=== PATIENT | female | born 1945 | race Caucasian/White ===

== ENCOUNTER 2016-09-29 14:18 | Observation (INO) | payer MEDICARE, MEDICAID ==
[2016-09-29 14:19] VITALS: BMI 57.4
--- NOTE | 2016-09-29 15:03 | C.PDOC ---
History Of Present Illness Patient is a 71 y/o female that presents to the emergency department for evaluation of left shoulder pain radiating to the chest, and left arm for the last 2 months. States her pain is getting progressively worse. Pt also reports numbness to left arm. Pt reports being seen by PMD who prescribed Motrin, notes taking Motrin with no relief. Otherwise, denies any trauma, injury, weakness, headache, dizziness, shortness of breath, palpitations, fever, chills, or any other associated symptoms at this time. Time Seen by Provider: 09/29/16 14:38 Chief Complaint (Nursing): Upper Extremity Problem/Injury History Per: Patient History/Exam Limitations: no limitations Onset/Duration Of Symptoms: Days (2 months) Current Symptoms Are (Timing): Still Present Quality: "Pain" Exacerbating Factor(s): Nothing Recent travel outside of the [place]: No Additional History Per: Patient Past Medical History Reviewed: Historical Data, Nursing Documentation, Vital Signs Vital Signs: Last Vital Signs Temp 98.1 F 10/01/16 15:00 Pulse 67 10/01/16 15:00 Resp 18 10/01/16 15:00 BP 130/70 10/01/16 17:49 Pulse Ox 96 10/01/16 15:00 - Medical History PMH: Anxiety, Asthma, CAD, CHF, COPD, HTN, Hyperlipidemia, Chronic Kidney Disease Denies: Emphysema, Kidney Stones - [facility] Procedures NEBULIZER THERAPY (11/21/13) NON-INVASIVE MECHANICAL VENTILATION (11/12/13) OCCUPATIONAL THERAPY (11/21/13) PHYSICAL THERAPY NEC (11/21/13) Family History: States: Hypertension - Social History Hx Alcohol Use: No Hx Substance Use: No Review Of Systems Except As Marked, All Systems Reviewed And Found Negative. Constitutional: Negative for: Fever, Chills Cardiovascular: Positive for: Chest Pain (left chest wall pain). Negative for: Palpitations, Edema, Light Headedness Respiratory: Negative for: Cough, Shortness of Breath, Sputum Gastrointestinal: Negative for: Nausea, Vomiting, Abdominal Pain Musculoskeletal: Positive for: Shoulder Pain (left), Arm Pain (left) Skin: Negative for: Rash Neurological: Positive for: Numbness (left arm). Negative for: Weakness, Headache, Dizziness Physical Exam - Physical Exam Appears: Non-toxic, No Acute Distress, Other (obese) Skin: Normal Color, Warm, Dry Head: Atraumatic, Normacephalic Eye(s): bilateral: Normal Inspection Neck: Normal ROM, Supple Chest: Symmetrical, Tenderness (left chest wall) Cardiovascular: Rhythm Regular, No Murmur Respiratory: Normal Breath Sounds, No Rales, No Rhonchi, No Wheezing Gastrointestinal/Abdominal: Soft, No Tenderness Extremity: No Normal ROM (decreased ROM of left shoulder secondary to pain), Tenderness (left shoulder), Capillary Refill (< 2 sec.), No Deformity, No Swelling Extremity: Bilateral: Atraumatic, Normal Color And Temperature Pulses: Left Radial: Normal, Right Radial: Normal Neurological/Psych: Oriented x3, Normal Speech, Normal Motor, Normal Sensation ED Course And Treatment - Laboratory Results Result Diagrams: 09/29/16 15:28 09/29/16 16:35 ECG: Interpreted By Me, Viewed By Me ECG Rhythm: Sinus Rhythm Rate From EC (BPM) O2 Sat by Pulse Oximetry: 98 (room air) Pulse Ox Interpretation: Normal Progress Note: Blood work, EKG, CXR, left shoulder x-ray ordered and reviewed. Patient was given Toradol. On reassessment, pain persists. Case discussed and pt evaluated by Dr Hearn, agreed upon plan and admission. Case discussed with Dr Bueno , agreed upon plan and admission. Disposition - Disposition Disposition: HOSPITALIZED Disposition Time: 15:00 Condition: STABLE - Clinical Impression Clinical Impression: Chest pain, Shoulder pain, left - PA / QA TEST LEAD / Resident Statement MD/DO has reviewed & agrees with the documentation as recorded. - Scribe Statement The provider has reviewed the documentation as recorded by the Thienibparam Bueno All medical record entries made by the Thienibparam were at my direction and personally dictated by me. I have reviewed the chart and agree that the record accurately reflects my personal performance of the history, physical exam, medical decision making, and the department course for this patient. I have also personally directed, reviewed, and agree with the discharge instructions and disposition.
[2016-09-29 15:37] LABS: BASO # 0.1 K/uL (0.0-0.2); BASO % 1.2 % (0.0-2.0); EOS # 0.3 K/uL (0.0-0.7); EOS % 2.6 % (0.0-4.0); HEMOGLOBIN 10.9 g/dL (11.0-16.0); LYMPH # 1.6 K/uL (1.0-4.3); LYMPH % 12.5 % (20.0-40.0); MEAN CORPUSCULAR HEMOGLOBIN 28.4 pg (27.0-31.0); MEAN CORPUSCULAR HGB CONC 31.6 g/dL (33.0-37.0); MEAN PLATELET VOLUME 8.5 fL (7.2-11.7); MONO # 0.8 K/uL (0.0-0.8); MONO % 6.3 % (0.0-10.0); NEUT # 9.8 K/uL (1.8-7.0); NEUT % 77.4 % (50.0-75.0); NRBC % 0.1 % (0.0-2.0); RBC 3.84 Mil/uL (3.80-5.20); WHITE BLOOD COUNT 12.6 K/uL (4.8-10.8)
--- NOTE | 2016-09-29 16:45 | RAD ---
PROCEDURE: CHEST RADIOGRAPH, 1 VIEW HISTORY: pain COMPARISON: 03/26/2012 FINDINGS: LUNGS: Clear. PLEURA: No pneumothorax or pleural fluid seen. CARDIOVASCULAR: Normal heart size. Mild congestive change. OSSEOUS STRUCTURES: No significant abnormalities. VISUALIZED UPPER ABDOMEN: Normal. OTHER FINDINGS: None. IMPRESSION: No active disease.
[2016-09-29 16:46] LABS: ALBUMIN 3.4 g/dL (3.5-5.0)
[2016-09-29 16:50] LABS: CALCIUM 8.8 mg/dl (8.6-10.4)
--- NOTE | 2016-09-29 16:54 | RAD ---
Left shoulder radiographs Indication: Pain Comparison: Chest x-ray performed the same day as well as 03/26/12 Findings: Suboptimal evaluation re- likely related to patient positioning. Unusual appearance of the scapula and scapular dislocation cannot be excluded. Suspect posterior dislocation of the humeral head, however this also may be related to suboptimal positioning. No acute displaced fracture evident. Soft tissue swelling. No evidence of radiopaque foreign body. Impression: Suboptimal evaluation re- likely related to patient positioning. Unusual appearance of the scapula and scapular dislocation cannot be excluded. Suspect posterior dislocation of the humeral head, however this also may be related to suboptimal positioning. Soft tissue swelling. Recommend clinical correlation and CT of the left shoulder for further evaluation.
[2016-09-29 17:52] LABS: CK-MB 3.01 ng/mL (0.0-3.38)
[2016-09-29] MEDS ORDERED: ATORVASTATIN CALCIUM PO SCH (22:00)
[2016-09-30 01:43] LABS: CK-MB 2.55 ng/mL (0.0-3.38)
[2016-09-30] MEDS: Levothyroxine 200 MCG TAB PO SCH (05:59)
[2016-09-30] MEDS ORDERED: Enoxaparin 40 mg Syringe SC SCH (10:00)
[2016-09-30 12:25] LABS: CK-MB 2.51 ng/mL (0.0-3.38)
--- NOTE | 2016-09-30 12:30 | CP.PCM.HP ---
Past Patient History - Infectious Disease Hx of Infectious Diseases: None - Tetanus Immunizations Tetanus Immunization: Unknown - Past Medical History & Family History Past Medical History?: Yes - Past Social History Smoking Status: Never Smoked - CARDIAC Hx Congestive Heart Failure: Yes Hx Hypercholesterolemia: Yes Hx Hypertension: Yes - PULMONARY Hx Asthma: Yes Hx Chronic Obstructive Pulmonary Disease (COPD): Yes Hx Emphysema: No - NEUROLOGICAL Hx Neurological Disorder: No - HEENT Hx HEENT Problems: No - RENAL Hx Chronic Kidney Disease: Yes Hx Kidney Stones: No - ENDOCRINE/METABOLIC Hx Endocrine Disorders: No Hx Hypothyroidism: Yes - HEMATOLOGICAL/ONCOLOGICAL Hx Blood Disorders: No - INTEGUMENTARY Hx Dermatological Problems: No - MUSCULOSKELETAL/RHEUMATOLOGICAL Hx Falls: Yes (September 16, 2016) - GASTROINTESTINAL Hx Gastrointestinal Disorders: No - GENITOURINARY/GYNECOLOGICAL Hx Genitourinary Disorders: No - PSYCHIATRIC Hx Anxiety: Yes Hx Substance Use: No - SURGICAL HISTORY Hx Arthroscopy: Yes Hx Cholecystectomy: Yes Hx Musculoskeletal Surgery: Yes (bl knee surgery) Hx Open Heart Surgery: No Other/Comment: stated has right knee surgery, eft knee surgery,brain surgery - ANESTHESIA Hx Anesthesia: Yes Hx Anesthesia Reactions: No Meds Allergies/Adverse Reactions: Allergies Allergy/AdvReac Type Severity Reaction Status Date / Time codeine Allergy Verified 09/29/16 14:40 Physical Exam - Constitutional Appears: Well - Eye Exam Eye Exam: EOMI, Normal appearance, PERRL Pupil Exam: NORMAL ACCOMODATION, PERRL - ENT Exam ENT Exam: Mucous Membranes Moist, Normal Exam - Neck Exam Neck exam: Positive for: Normal Inspection - Respiratory Exam Respiratory Exam: Decreased Breath Sounds - Cardiovascular Exam Cardiovascular Exam: REGULAR RHYTHM, +S1, +S2 - GI/Abdominal Exam GI & Abdominal Exam: Diminished Bowel Sounds, Soft - Rectal Exam Rectal Exam: Deferred Results - Vital Signs Recent Vital Signs: Last Vital Signs Temp 98.2 F 09/30/16 08:29 Pulse 76 09/30/16 08:29 Resp 18 09/30/16 08:29 BP 121/69 09/30/16 10:27 Pulse Ox 94 L 09/30/16 08:29 - Labs Result Diagrams: 09/29/16 15:28 09/29/16 16:35 Labs: Laboratory Results - last 24 hr 09/30/16 09/30/16 01:13 11:55 Total Creatine Kinase 51 48 CK-MB (Mass) 2.55 2.51 Troponin I, Quant < 0.0120 < 0.0120
--- NOTE | 2016-09-30 13:04 | CARD ---
APPROVED REPORT EKG Measurement Heart [id number] <Conclusion> Normal sinus rhythm Voltage criteria for left ventricular hypertrophy Inferior infarct, age undetermined Abnormal ECG
--- NOTE | 2016-09-30 15:11 | CT ---
CT left shoulder History: Left shoulder injury. Left shoulder pain. Suspected dislocation. Comparison: X-ray dated 09/29/2016 Technique: Multiple contiguous axial images were performed through the left shoulder without the use of intravenous contrast. Subsequently, sagittal and coronal reformatted images were obtained. This CT exam was performed using one or more of the following dose reduction techniques: Automated exposure control, adjustment of the mA and/or kV according to patient size, and/or use of iterative reconstruction technique. Findings: Study limited by patient motion step-off and streak artifact. Prominent narrowing of the left glenohumeral joint space with mild posterior subluxation of the humeral head in relationship to the bony glenoid. Associated moderate left glenohumeral joint effusion. Suggestion of some cortical irregularity of the posterior bony glenoid which may represent subchondral osseous injury. Mild flattening of the posterior lateral humeral head which may represent an impaction deformity. Correlation with MRI may be helpful if clinically indicated. Moderate degenerative changes at the left acromioclavicular joint space. Mild inferior subluxation of the distal clavicle in relationship to the acromion. Question cortical irregularity seen at the inferior pole of the scapula which may be related to prominent motion/step-off artifact versus osseous injury. Clinical correlation and or correlation with MRI may be helpful if clinically indicated. 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 No significant axillary adenopathy. Coronary calcifications. Atelectatic changes in the lung chapa. Impression: Study limited by patient motion step-off and streak artifact. 1. Prominent narrowing of the left glenohumeral joint space with mild posterior subluxation of the humeral head in relationship to the bony glenoid. Associated moderate left glenohumeral joint effusion. Suggestion of some cortical irregularity of the posterior bony glenoid which may represent subchondral osseous injury. Mild flattening of the posterior lateral humeral head which may represent an impaction deformity. Correlation with MRI may be helpful if clinically indicated. 2. Moderate degenerative changes at the left acromioclavicular joint space. Mild inferior subluxation of the distal clavicle in relationship to the acromion. 3. Question cortical irregularity seen at the inferior pole of the scapula which may be related to prominent motion/step-off artifact versus osseous injury. Clinical correlation and or correlation with MRI may be helpful if clinically indicated.
[2016-09-30] MEDS ORDERED: Fluticasone-Salmeterol 250-50mcg Diskus INH SCH (20:00)
[2016-10-01] MEDS: Albuterol-Ipratrop 3 mg / 0.5 (3 ml) UD INH PRN ×3 (00:05→14:49)
[2016-10-01 04:46] VITALS: RESP 18
[2016-10-01] MEDS: Levothyroxine 200 MCG TAB PO SCH (06:04)
--- NOTE | 2016-10-01 09:58 | CP.PCM.CON ---
History of Present Illness - History of Present Illness History of Present Illness: 71F complains of left shoulder pain x 2 months. She says the pain shoots down from her neck into her arm and into her chest. Motrin and tramadol do not control pain. She says the pain is getting worse, is worst at night, and denies any injury/trauma/falls. She also admits to tingling in her left hand and neck pain during this time. She denies fever/chills. Denies history of gout. Denies SOB/dizziness/n/v. Denies pain in other extremities. PMH: CAD, CHF, COPD, HTN, asthma, anxiety, hyperlipidemia, CKD PSH: B knee surgery, brain surgery allergy to codeine non smoker Review of Systems - Review of Systems All systems: reviewed and no additional remarkable complaints except - Constitutional Constitutional: As Per HPI - Cardiovascular Cardiovascular: As Per HPI - Respiratory Respiratory: As Per HPI - Musculoskeletal Musculoskeletal: As Per HPI - Integumentary Additional comments: denies any redness/discoloration/rash - Neurological Neurological: Tingling - Hematologic/Lymphatic Hematologic: absent: As Per HPI, Easy Bleeding, Easy Bruising, Lymphadenopathy, Other Past Patient History - Infectious Disease Hx of Infectious Diseases: None - Tetanus Immunizations Tetanus Immunization: Unknown - Past Medical History & Family History Past Medical History?: Yes Past Family History: Reviewed and not pertinent - Past Social History Smoking Status: Never Smoked - CARDIAC Hx Congestive Heart Failure: Yes Hx Hypertension: Yes - PULMONARY Hx Chronic Obstructive Pulmonary Disease (COPD): Yes - NEUROLOGICAL Hx Neurological Disorder: No - HEENT Hx HEENT Problems: No - RENAL Hx Chronic Kidney Disease: Yes Hx Kidney Stones: No - ENDOCRINE/METABOLIC Hx Endocrine Disorders: No Hx Hypothyroidism: Yes - HEMATOLOGICAL/ONCOLOGICAL Hx Blood Disorders: No - INTEGUMENTARY Hx Dermatological Problems: No - MUSCULOSKELETAL/RHEUMATOLOGICAL Hx Falls: Yes (September 16, 2016) - GASTROINTESTINAL Hx Gastrointestinal Disorders: No - GENITOURINARY/GYNECOLOGICAL Hx Genitourinary Disorders: No - PSYCHIATRIC Hx Anxiety: Yes Hx Substance Use: No - SURGICAL HISTORY Hx Arthroscopy: Yes Hx Cholecystectomy: Yes Hx Musculoskeletal Surgery: Yes (bl knee surgery) Hx Open Heart Surgery: No Other/Comment: stated has right knee surgery, eft knee surgery,brain surgery - ANESTHESIA Hx Anesthesia: Yes Hx Anesthesia Reactions: No Meds Allergies/Adverse Reactions: Allergies Allergy/AdvReac Type Severity Reaction Status Date / Time codeine Allergy Verified 09/29/16 14:40 - Medications Medications: Current Medications Albuterol/Ipratropium (Duoneb 3 Mg/0.5 Mg (3 Ml) Ud) 3 ml INH RQ4 PRN PRN Reason: Wheezing Last Admin: 10/01/16 07:41 Dose: 3 ml Alprazolam (Xanax) 1 mg PO HS [facility] Last Admin: 09/30/16 21:14 Dose: 1 mg Amlodipine Besylate (Norvasc) 10 mg PO DAILY [facility] Last Admin: 09/30/16 10:26 Dose: 10 mg Aspirin (Ecotrin) 81 mg PO DAILY [facility] Last Admin: 09/30/16 10:26 Dose: 81 mg Carvedilol (Coreg) 25 mg PO BID [facility] Last Admin: 09/30/16 17:40 Dose: 25 mg Clopidogrel Bisulfate (Plavix) 75 mg PO DAILY [facility] Last Admin: 09/30/16 10:25 Dose: 75 mg Enoxaparin Sodium (Lovenox) 30 mg SC DAILY [facility] Furosemide (Lasix) 40 mg PO DAILY [facility] Last Admin: 09/30/16 10:27 Dose: 40 mg Ibuprofen (Motrin Tab) 800 mg PO Q8 PRN PRN Reason: MODERATE PAIN 4-7 Levothyroxine Sodium (Synthroid) 200 mcg PO DAILY@0630 [facility] Last Admin: 10/01/16 06:04 Dose: 200 mcg Pneumococcal Polyvalent Vaccine (Pneumovax 23 Vaccine) 0.5 ml IM .ONCE ONE Stop: 10/02/16 10:01 Rosuvastatin Calcium (Crestor) 10 mg PO HS [facility] Last Admin: 09/30/16 21:17 Dose: 10 mg Fluticasone/Salmeterol (Advair Diskus 250/50) 1 puff INH RBID [facility] Last Admin: 09/30/16 21:20 Dose: 1 inhaler Tramadol HCl (Ultram) 50 mg PO Q12 PRN PRN Reason: SEVERE PAIN 8-10 Physical Exam - Constitutional Appears: Well, No Acute Distress - Head Exam Head Exam: ATRAUMATIC, NORMAL INSPECTION - Neck Exam Neck exam: Positive for: Full Rom, Normal Inspection Additional comments: complains of pain with any neck ROM, neg spurling - Expanded Neck Exam Expanded Expanded Neck Exam: Tenderness - Respiratory Exam Respiratory Exam: NORMAL BREATHING PATTERN - Cardiovascular Exam Additional comments: +radial pulse LUE - Expanded Upper Extremities Exam Left Shoulder exam: tenderness (generalized moderate tenderness to GH joint (worst), AC joint, scapula, upper trap, left side of neck), tenderness over AC joint, normal inspection Elbow exam: full ROM, normal inspection Neuro motor exam: finger 2-5 abduction intact, thumb abduction, thumb IP flexion intact, thumb opposition intact, wrist extension intact Neurosensory exam: median nerve intact, radial nerve intact, ulnar nerve intact (complains of tingling to volar aspect of all fingers. Dorsal hand intact, forearm sensation intact. ) Vascular exam: radial pulse - Neurological Exam Neurological exam: Alert, Oriented x3 - Psychiatric Exam Psychiatric exam: Normal Affect, Normal Mood - Skin Skin Exam: Dry, Intact, Normal Color, Warm Results - Vital Signs Recent Vital Signs: Last Vital Signs Temp 98.5 F 10/01/16 08:58 Pulse 61 10/01/16 08:58 Resp 18 10/01/16 08:58 BP 137/75 10/01/16 08:58 Pulse Ox 96 10/01/16 08:58 - Labs Result Diagrams: 09/29/16 15:28 09/29/16 16:35 Labs: Laboratory Results - last 24 hr 09/30/16 10/01/16 11:55 05:58 POC Glucose (mg/dL) 122 H Total Creatine Kinase 48 CK-MB (Mass) 2.51 Troponin I, Quant < 0.0120 Assessment & Plan (1) Degenerative joint disease, shoulder, left Assessment and Plan: CT scan reviewed MRI ordered, will attempt sling ice pain control d/w Dr. Oh Status: Acute (2) Arthralgia of left acromioclavicular joint Status: Acute (3) Neck pain on left side Assessment and Plan: xrays consider further imaging after xrays reviewed Addendum: xray limited due to body habitus. As patient is complaining of paresthesias in left hand, will order CT scan. Patient can not have MRI due to body habitus. No acute fracture appreciated or suspected, as patient has chronic pain x 2 months. Status: Acute Radiology Interpretation - Animal Feeder Animal Feeder:: Radiologist - Notes: Notes:: ccession No. : [id number] Patient Name / ID : ERNIE LOVELL / [id number] Exam Date : 10/01/2016 10:00:09 ( Approved ) Study Comment : Sex / Age : F Y Creator : Matthias Brunner MD Dictator : Matthias Brunner MD Wellness Trainer : Product Technology Scientist : Matthias Brunner MD Approver2 : Report Date : 10/01/2016 14:00:43 My Comment : PROCEDURE: Cervical Spine Radiographs. HISTORY: Pain. COMPARISON: None. FINDINGS: BONES: Due to obese body habitus and limited ability to position, study is compromised. Curvature appears straightened. No definitive fracture or spondylolisthesis is encountered. The cervical spine below the see 5 level is compromised by artifact and spondylolisthesis cannot be evaluated. Follow-up CT should be considered if clinically warranted. Dens Intact. DISC SPACES: Normal. SOFT TISSUES: Poorly evaluated. OTHER FINDINGS: None. IMPRESSION: Exam markedly limited by body habitus and limited in its ability to position however no gross fractures appreciable from C5 up to C1. Mild straightening of the curvature is questioned. Follow-up CT or MRI is recommended there is not contraindication and as clinically indicated. - Radiology Interpretation #2 Interpretation: atient Name / ID : ERNIE LOVELL / [id number] Exam Date : 09/30/2016 13:30:39 ( Approved ) Study Comment : Sex / Age : Creator : Dionte Chaudhry MD Dictator : Dionte Chaudhry MD Wellness Trainer : Product Technology Scientist : Dionte Chaudhry MD Approver2 : Report Date : 09/30/2016 15:05:53 My Comment : CT left shoulder History: Left shoulder injury. Left shoulder pain. Suspected dislocation. Comparison: X-ray dated 09/29/2016 Technique: Multiple contiguous axial images were performed through the left shoulder without the use of intravenous contrast. Subsequently, sagittal and coronal reformatted images were obtained. This CT exam was performed using one or more of the following dose reduction techniques: Automated exposure control, adjustment of the mA and/or kV according to patient size, and/or use of iterative reconstruction technique. Findings: Study limited by patient motion step-off and streak artifact. Prominent narrowing of the left glenohumeral joint space with mild posterior subluxation of the humeral head in relationship to the bony glenoid. Associated moderate left glenohumeral joint effusion. Suggestion of some cortical irregularity of the posterior bony glenoid which may represent subchondral osseous injury. Mild flattening of the posterior lateral humeral head which may represent an impaction deformity. Correlation with MRI may be helpful if clinically indicated. Moderate degenerative changes at the left acromioclavicular joint space. Mild inferior subluxation of the distal clavicle in relationship to the acromion. Question cortical irregularity seen at the inferior pole of the scapula which may be related to prominent motion/step-off artifact versus osseous injury. Clinical correlation and or correlation with MRI may be helpful if clinically indicated. 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 No significant axillary adenopathy. Coronary calcifications. Atelectatic changes in the lung chapa. Impression: Study limited by patient motion step-off and streak artifact. 1. Prominent narrowing of the left glenohumeral joint space with mild posterior subluxation of the humeral head in relationship to the bony glenoid. Associated moderate left glenohumeral joint effusion. Suggestion of some cortical irregularity of the posterior bony glenoid which may represent subchondral osseous injury. Mild flattening of the posterior lateral humeral head which may represent an impaction deformity. Correlation with MRI may be helpful if clinically indicated. 2. Moderate degenerative changes at the left acromioclavicular joint space. Mild inferior subluxation of the distal clavicle in relationship to the acromion. 3. Question cortical irregularity seen at the inferior pole of the scapula which may be related to prominent motion/step-off artifact versus osseous injury. Clinical correlation and or correlation with MRI may be helpful if clinically indicated. - Radiology Interpretation #3 Interpretation: Accession No. : [id number] Patient Name / ID : ERNIE LOVELL / [id number] Exam Date : 09/29/2016 15:24:27 ( Approved ) Study Comment : Sex / Age : F / 71Y Creator : Alexandria Gallegos MD Dictator : Alexandria Gallegos MD Wellness Trainer : Product Technology Scientist : Alexandria Gallegos MD Approver2 : Report Date : 09/29/2016 16:52:30 My Comment : Left shoulder radiographs Indication: Pain Comparison: Chest x-ray performed the same day as well as 03/26/12 Findings: Suboptimal evaluation re- likely related to patient positioning. Unusual appearance of the scapula and scapular dislocation cannot be excluded. Suspect posterior dislocation of the humeral head, however this also may be related to suboptimal positioning. No acute displaced fracture evident. Soft tissue swelling. No evidence of radiopaque foreign body. Impression: Suboptimal evaluation re- likely related to patient positioning. Unusual appearance of the scapula and scapular dislocation cannot be excluded. Suspect posterior dislocation of the humeral head, however this also may be related to suboptimal positioning. Soft tissue swelling. Recommend clinical correlation and CT of the left shoulder for further evaluation.
[2016-10-01] MEDS ORDERED: Enoxaparin 30 mg Syringe SC SCH (10:00)
[2016-10-01] MEDS ORDERED: Lidocaine 5% Patch TD SCH (10:00)
--- NOTE | 2016-10-01 12:31 | CP.PCM.PN ---
Subjective - Date & Time of Evaluation Date of Evaluation: 10/01/16 Time of Evaluation: 12:29 - Subjective Subjective: PGY2 progress note for Dr. Bueno Pt is seen and examined at bedside. No acute events overnight. Patient continues to c/o left shoulder pain and difficulty moving arm. Patient denies having any CP, abd pain, N/V/d/C. Patient c/o SOB and wheezing this morning and is in the middle of a breathing treatment. 12 point ROS are negative except for the above mentioned. Objective - Vital Signs/Intake and Output Vital Signs (last 24 hours): Temp Pulse Resp BP Pulse Ox 98.5 F 61 18 122/78 96 10/01/16 08:58 10/01/16 08:58 10/01/16 08:58 10/01/16 11:00 10/01/16 08:58 Intake and Output: 10/01/16 10/01/16 06:59 18:59 Intake Total 510 Output Total 500 Balance 10 - Medications Medications: Current Medications Albuterol/Ipratropium (Duoneb 3 Mg/0.5 Mg (3 Ml) Ud) 3 ml INH RQ4 PRN PRN Reason: Wheezing Last Admin: 10/01/16 07:41 Dose: 3 ml Alprazolam (Xanax) 1 mg PO HS [facility] Last Admin: 09/30/16 21:14 Dose: 1 mg Amlodipine Besylate (Norvasc) 10 mg PO DAILY [facility] Last Admin: 10/01/16 11:00 Dose: 10 mg Aspirin (Ecotrin) 81 mg PO DAILY [facility] Last Admin: 10/01/16 11:00 Dose: 81 mg Carvedilol (Coreg) 25 mg PO BID [facility] Last Admin: 09/30/16 17:40 Dose: 25 mg Clopidogrel Bisulfate (Plavix) 75 mg PO DAILY [facility] Last Admin: 10/01/16 11:00 Dose: 75 mg Enoxaparin Sodium (Lovenox) 30 mg SC DAILY [facility] Last Admin: 10/01/16 11:00 Dose: 30 mg Furosemide (Lasix) 40 mg PO DAILY [facility] Last Admin: 10/01/16 11:00 Dose: 40 mg Ibuprofen (Motrin Tab) 800 mg PO Q8 PRN PRN Reason: MODERATE PAIN 4-7 Levothyroxine Sodium (Synthroid) 200 mcg PO DAILY@0630 [facility] Last Admin: 10/01/16 06:04 Dose: 200 mcg Lidocaine (Lidoderm) 1 ea TD DAILY [facility] Last Admin: 10/01/16 11:00 Dose: 1 ea Pneumococcal Polyvalent Vaccine (Pneumovax 23 Vaccine) 0.5 ml IM .ONCE ONE Stop: 10/02/16 10:01 Rosuvastatin Calcium (Crestor) 10 mg PO HS [facility] Last Admin: 09/30/16 21:17 Dose: 10 mg Fluticasone/Salmeterol (Advair Diskus 250/50) 1 puff INH RBID [facility] Last Admin: 09/30/16 21:20 Dose: 1 inhaler Tramadol HCl (Ultram) 50 mg PO Q12 PRN PRN Reason: SEVERE PAIN 8-10 Last Admin: 10/01/16 11:57 Dose: 50 mg - Constitutional Appears: Non-toxic, No Acute Distress - ENT Exam ENT Exam: Mucous Membranes Moist - Respiratory Exam Respiratory Exam: Wheezes. absent: Accessory Muscle Use, Clear to Ausculation Bilateral, Rales, Rhonchi, Respiratory Distress - Cardiovascular Exam Cardiovascular Exam: REGULAR RHYTHM, +S1, +S2. absent: Gallop, Rubs, Murmur - GI/Abdominal Exam GI & Abdominal Exam: Soft, Normal Bowel Sounds. absent: Firm, Guarding, Rigid, Tenderness, Rebound - Extremities Exam Extremities Exam: absent: Pedal Edema, Tenderness Additional comments: left shoulder and upper arm pain with palpation. Patient is hesitant to move arm passive or actively - Neurological Exam Neurological Exam: Alert, Awake, Oriented x3 - Psychiatric Exam Psychiatric exam: Normal Affect, Normal Mood - Skin Skin Exam: Dry, Intact, Normal Color, Warm Assessment and Plan - Assessment and Plan (Free Text) Assessment: 71 year old female with past medical history of CAD, CHF, COPD, HTN, anxiety, HLD and CKD is admitted for left shoulder pain and left sided CP r/o ACS. CP R/O ACS - Cardiology, Dr. Cagle is consulted - Patient is to continue Crestor, Coreg, Plavix and Aspirin QD - EKG on admission showed NSR - Troponins x 3 are negative Left shoulder pain - Ortho, Dr. Bailey is consulted. Recommend outpatient followup - Shoulder x ray done on admission was a suboptimal evaluation due to positioning; unusual appearance of the scapula and scapular dislocation cannot be excluded; soft tissue swelling. - CT of upper extremity done on 7/18 showed prominent narrowing of left glenohumeral joint space with mild subluxation of the humeral head in relationship to the bony glenoid; associated moderate left glenohumeral joint effusion; moderate degenerative changes at the left acromiclavicular joint space ; mild inferior subluxation of the distal clavicle in relationship to the acromion. - Cervical spine CT shows no gross fracture - MRI cannot be done due to body habbitus HTN - Continue Lasix HLD - Crestor 10 mg po HS COPD - Advair Diskus - Duoneb Hypothyroid - Synthroid 200 mcg qd Orders and management per Dr. Bueno Patient is stable for discharge home per Dr. Bueno. Patient is to follow up with PMD upon discharge. Patient is to follow up with [facility] upon discharge. Patient is to follow up with industrial safety and health specialist within 2 weeks upon discharge. Patient is discharged with home with services for physical therapy. Patient is discharged with the following medications: Norvasc 10 mg po qd, Aspirin 81 mg po qd, Symbicort inhaler, Coreg 25 mg po qd, Plavix 75 mg po qd, Lasix 40 mg po qd, Synthroid 200 mcg po qd, Crestor 10 mg po HS. If symptoms return please go to ED.
--- NOTE | 2016-10-01 14:02 | RAD ---
PROCEDURE: Cervical Spine Radiographs. HISTORY: Pain. COMPARISON: None. FINDINGS: BONES: Due to obese body habitus and limited ability to position, study is compromised. Curvature appears straightened. No definitive fracture or spondylolisthesis is encountered. The cervical spine below the see 5 level is compromised by artifact and spondylolisthesis cannot be evaluated. Follow-up CT should be considered if clinically warranted. Dens Intact. DISC SPACES: Normal. SOFT TISSUES: Poorly evaluated. OTHER FINDINGS: None. IMPRESSION: Exam markedly limited by body habitus and limited in its ability to position however no gross fractures appreciable from C5 up to C1. Mild straightening of the curvature is questioned. Follow-up CT or MRI is recommended there is not contraindication and as clinically indicated.
--- NOTE | 2016-10-01 15:38 | CT ---
PROCEDURE: CT Cervical Spine without contrast HISTORY: <neck and left shoulder pain, paresthesias> COMPARISON: None available. TECHNIQUE: Axial computed tomography images were obtained of the cervical spine without the use of intravenous contrast. Coronal and sagittal reformatted images were created and reviewed. Radiation dose: Total exam DLP = 696 mGy-cm. This CT exam was performed using one or more of the following dose reduction techniques: Automated exposure control, adjustment of the mA and/or kV according to patient size, and/or use of iterative reconstruction technique. FINDINGS: VERTEBRAE: No fracture. Straightened curvature. No destructive bony lesion. DISCS/SPINAL CANAL/NEURAL FORAMINA: [id number] multilevel cervical spondylosis contrary at the midcervical spine. Discs heights are grossly preserved. Mild central canal stenosis results from a generalized disc bulge at C3-4. A mild left neuro degenerative degenerative foraminal stenosis in encounter here is well. At C4-5, A generalized disc bulge and posterior ridging results in a borderline central stenosis. No significant neural foraminal stenosis. At C5-6, minimal disc bulge increased without significant stenosis. C6-7 and C7-T1 central canals and neural foramina are widely patent without stenosis PARASPINAL SOFT TISSUES: Unremarkable. OTHER FINDINGS: None. IMPRESSION: 1. Straightened cervical curvature to prior without acute fracture or spondylolisthesis identified. 2. A limited degenerate disease seen at the mid to inferior cervical spine bladder resulting in moderate or severe central stenosis. A mild C3-4 central stenosis is due to generalized disc bulging. ne.
--- NOTE | 2016-10-01 16:26 | CP.PCM.CON ---
History of Present Illness - History of Present Illness History of Present Illness: CC: chest pain and left shoulder pain HPI : Ms. Medrano is a 71-year-old female with past medical history significant for hypertension dyslipidemia and nonobstructive coronary artery disease status post left heart catheterization done in March 2012. Cardiac catheterization showed mild nonobstructive coronary artery disease. At baseline she has limited activity secondary to bilateral osteoarthritis of the knees. She is admitted on this admission for complains of left shoulder discomfort accompanied with mild chest wall tenderness. She denies having any associated shortness of breath palpitations dizziness syncope or presyncope. Left shoulder pain is reproducible on movement of the left arm. She complains of worsening symptoms in the last week. She had last ischemic workup done by Dr. Crisostomo in January 2015 who is her regular machine wood sander and was last seen by him in office in August 2016. At baseline her activity is severely limited secondary to the osteoarthritis of the knees but she denies having any ischemic chest pains shortness of breath palpitations. Review of Systems - Review of Systems All systems: reviewed and no additional remarkable complaints except - Constitutional Constitutional: As Per HPI, Fatigue - EENT Eyes: As Per HPI - Cardiovascular Cardiovascular: Chest Pain - Respiratory Respiratory: As Per HPI - Gastrointestinal Gastrointestinal: As Per HPI - Musculoskeletal Musculoskeletal: Arthralgias, Limited Range of Motion, Neck Pain, Tingling - Integumentary Integumentary: As Per HPI - Neurological Neurological: As Per HPI - Psychiatric Psychiatric: As Per HPI - Endocrine Endocrine: As Per HPI - Hematologic/Lymphatic Hematologic: As Per HPI Past Patient History - Infectious Disease Hx of Infectious Diseases: None - Tetanus Immunizations Tetanus Immunization: Unknown - Past Medical History & Family History Past Medical History?: Yes Past Family History: Reviewed and not pertinent Pertinent Family History: +ve family history of CAD in both parents - Past Social History Smoking Status: Never Smoked Home Situation {Lives}: Alone - CARDIAC Hx Congestive Heart Failure: Yes Hx Hypertension: Yes - PULMONARY Hx Chronic Obstructive Pulmonary Disease (COPD): Yes - NEUROLOGICAL Hx Neurological Disorder: No - HEENT Hx HEENT Problems: No - RENAL Hx Chronic Kidney Disease: Yes Hx Kidney Stones: No - ENDOCRINE/METABOLIC Hx Endocrine Disorders: No Hx Hypothyroidism: Yes - HEMATOLOGICAL/ONCOLOGICAL Hx Blood Disorders: No - INTEGUMENTARY Hx Dermatological Problems: No - MUSCULOSKELETAL/RHEUMATOLOGICAL Hx Falls: Yes (September 16, 2016) - GASTROINTESTINAL Hx Gastrointestinal Disorders: No - GENITOURINARY/GYNECOLOGICAL Hx Genitourinary Disorders: No - PSYCHIATRIC Hx Anxiety: Yes Hx Substance Use: No - SURGICAL HISTORY Hx Arthroscopy: Yes Hx Cholecystectomy: Yes Hx Musculoskeletal Surgery: Yes (bl knee surgery) Hx Open Heart Surgery: No Other/Comment: stated has right knee surgery, eft knee surgery,brain surgery - ANESTHESIA Hx Anesthesia: Yes Hx Anesthesia Reactions: No Meds Home Medications: Home Medication List Medication Instructions Recorded Confirmed Type Aspirin [Ecotrin] 81 mg PO DAILY #30 10/01/16 Rx Budesonide/Formoterol Fumarate 2 puff INH BID #1 10/01/16 Rx [Symbicort 160-4.5 Mcg Inhaler] Carvedilol [Coreg] 25 mg PO BID #60 10/01/16 Rx Clopidogrel [Plavix] 75 mg PO DAILY #30 tab 10/01/16 Rx Furosemide [Lasix] 40 mg PO DAILY #60 10/01/16 Rx Levothyroxine [Synthroid] 200 mcg PO DAILY #30 10/01/16 Rx Rosuvastatin Calcium [Crestor] 40 mg PO HS #60 tab 10/01/16 Rx amLODIPine [Norvasc] 1 tab PO DAILY #30 10/01/16 Rx Allergies/Adverse Reactions: Allergies Allergy/AdvReac Type Severity Reaction Status Date / Time codeine Allergy Verified 09/29/16 14:40 - Medications Medications: Current Medications Alprazolam (Xanax) 1 mg PO HS [facility] Last Admin: 09/30/16 21:14 Dose: 1 mg Amlodipine Besylate (Norvasc) 10 mg PO DAILY [facility] Last Admin: 10/01/16 11:00 Dose: 10 mg Aspirin (Ecotrin) 81 mg PO DAILY [facility] Last Admin: 10/01/16 11:00 Dose: 81 mg Carvedilol (Coreg) 25 mg PO BID [facility] Last Admin: 10/01/16 11:00 Dose: 25 mg Clopidogrel Bisulfate (Plavix) 75 mg PO DAILY [facility] Last Admin: 10/01/16 11:00 Dose: 75 mg Enoxaparin Sodium (Lovenox) 30 mg SC DAILY [facility] Last Admin: 10/01/16 11:00 Dose: 30 mg Furosemide (Lasix) 40 mg PO DAILY [facility] Last Admin: 10/01/16 11:00 Dose: 40 mg Ibuprofen (Motrin Tab) 800 mg PO Q8 PRN PRN Reason: MODERATE PAIN 4-7 Levothyroxine Sodium (Synthroid) 200 mcg PO DAILY@0630 [facility] Last Admin: 10/01/16 06:04 Dose: 200 mcg Lidocaine (Lidoderm) 1 ea TD DAILY [facility] Last Admin: 10/01/16 11:00 Dose: 1 ea Pneumococcal Polyvalent Vaccine (Pneumovax 23 Vaccine) 0.5 ml IM .ONCE ONE Stop: 10/02/16 10:01 Rosuvastatin Calcium (Crestor) 10 mg PO HS [facility] Last Admin: 09/30/16 21:17 Dose: 10 mg Fluticasone/Salmeterol (Advair Diskus 250/50) 1 puff INH RBID [facility] Last Admin: 09/30/16 21:20 Dose: 1 inhaler Tramadol HCl (Ultram) 50 mg PO Q12 PRN PRN Reason: SEVERE PAIN 8-10 Last Admin: 10/01/16 11:57 Dose: 50 mg Physical Exam - Constitutional Appears: Well, No Acute Distress - Head Exam Head Exam: ATRAUMATIC, NORMAL INSPECTION, NORMOCEPHALIC - Eye Exam Eye Exam: EOMI, Normal appearance, PERRL Pupil Exam: NORMAL ACCOMODATION, PERRL - ENT Exam ENT Exam: Mucous Membranes Moist, Normal Exam - Neck Exam Neck exam: Positive for: Normal Inspection - Respiratory Exam Respiratory Exam: Clear to Auscultation Bilateral, NORMAL BREATHING PATTERN - Cardiovascular Exam Cardiovascular Exam: REGULAR RHYTHM, RRR, +S1, +S2 - GI/Abdominal Exam GI & Abdominal Exam: Normal Bowel Sounds, Soft. absent: Tenderness - Rectal Exam Rectal Exam: Deferred - Extremities Exam Extremities exam: Positive for: normal inspection - Back Exam Back exam: NORMAL INSPECTION - Neurological Exam Neurological exam: Alert, CN II-XII Intact, Normal Gait, Oriented x3, Reflexes Normal - Psychiatric Exam Psychiatric exam: Normal Affect, Normal Mood - Skin Skin Exam: Dry, Intact, Normal Color, Warm Results - Vital Signs Recent Vital Signs: Last Vital Signs Temp 98.5 F 10/01/16 08:58 Pulse 61 10/01/16 08:58 Resp 18 10/01/16 08:58 BP 122/78 10/01/16 11:00 Pulse Ox 96 10/01/16 08:58 - Labs Result Diagrams: 09/29/16 15:28 09/29/16 16:35 Labs: Laboratory Results - last 24 hr 10/01/16 05:58 POC Glucose (mg/dL) 122 H - EKG Data EKG Interpreted by: Myself EKG shows normal: Sinus rhythm, [place], Intervals, QRS complexes Rate: Normal Assessment & Plan (1) Chest pain Assessment and Plan: etiology non-cardiac secondary to left shoulder MSK pain Catheterization done in 03/28 showed non-obstructive CAD and stress test in normal can dc plavix ( no indication for DAPT ) f/u with ortho and rheum for arthritis no further cardiac w/u needed Status: Acute Onset Date: 09/28/14 (2) Hypertension Assessment and Plan: BP well controlled cont with current regimen of coreg, cozaar and norvasc f/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
[2016-10-01 17:01] VITALS: PULSE 67; TEMP 98.1
[2016-10-01 17:51] VITALS: BP 130/70
--- NOTE | 2016-10-01 18:06 | CP.PCM.PN ---
Subjective - Date & Time of Evaluation Date of Evaluation: 10/01/16 Time of Evaluation: 15:00 - Subjective Subjective: clinically same Objective - Vital Signs/Intake and Output Vital Signs (last 24 hours): Temp Pulse Resp BP Pulse Ox 98.1 F 67 18 130/70 96 10/01/16 15:00 10/01/16 15:00 10/01/16 15:00 10/01/16 17:49 10/01/16 15:00 Intake and Output: 10/01/16 10/01/16 06:59 18:59 Intake Total 510 Output Total 500 Balance 10 - Medications Medications: Current Medications Alprazolam (Xanax) 1 mg PO HS [facility] Last Admin: 09/30/16 21:14 Dose: 1 mg Amlodipine Besylate (Norvasc) 10 mg PO DAILY [facility] Last Admin: 10/01/16 11:00 Dose: 10 mg Aspirin (Ecotrin) 81 mg PO DAILY [facility] Last Admin: 10/01/16 11:00 Dose: 81 mg Carvedilol (Coreg) 25 mg PO BID [facility] Last Admin: 10/01/16 17:49 Dose: 25 mg Clopidogrel Bisulfate (Plavix) 75 mg PO DAILY [facility] Last Admin: 10/01/16 11:00 Dose: 75 mg Enoxaparin Sodium (Lovenox) 30 mg SC DAILY [facility] Last Admin: 10/01/16 11:00 Dose: 30 mg Furosemide (Lasix) 40 mg PO DAILY [facility] Last Admin: 10/01/16 11:00 Dose: 40 mg Ibuprofen (Motrin Tab) 800 mg PO Q8 PRN PRN Reason: MODERATE PAIN 4-7 Levothyroxine Sodium (Synthroid) 200 mcg PO DAILY@0630 [facility] Last Admin: 10/01/16 06:04 Dose: 200 mcg Lidocaine (Lidoderm) 1 ea TD DAILY [facility] Last Admin: 10/01/16 11:00 Dose: 1 ea Pneumococcal Polyvalent Vaccine (Pneumovax 23 Vaccine) 0.5 ml IM .ONCE ONE Stop: 10/02/16 10:01 Rosuvastatin Calcium (Crestor) 10 mg PO HS [facility] Last Admin: 09/30/16 21:17 Dose: 10 mg Fluticasone/Salmeterol (Advair Diskus 250/50) 1 puff INH RBID [facility] Last Admin: 09/30/16 21:20 Dose: 1 inhaler Tramadol HCl (Ultram) 50 mg PO Q12 PRN PRN Reason: SEVERE PAIN 8-10 Last Admin: 10/01/16 11:57 Dose: 50 mg - Constitutional Appears: Well - Head Exam Head Exam: ATRAUMATIC, NORMAL INSPECTION, NORMOCEPHALIC - Eye Exam Eye Exam: EOMI, Normal appearance, PERRL Pupil Exam: NORMAL ACCOMODATION, PERRL - ENT Exam ENT Exam: Mucous Membranes Moist, Normal Exam - Neck Exam Neck Exam: Full ROM, Normal Inspection. absent: Lymphadenopathy - Respiratory Exam Respiratory Exam: Decreased Breath Sounds - Cardiovascular Exam Cardiovascular Exam: REGULAR RHYTHM, +S1, +S2 - GI/Abdominal Exam GI & Abdominal Exam: Soft, Diminished Bowel Sounds - Rectal Exam Rectal Exam: Deferred
--- NOTE | 2016-10-01 18:25 | PCM.HF ---
Heart Failure Core Measure - Heart Failure Left Ventricular Function to be assessed after discharge: Yes MERARI Inhibitor Prescribed: No Contraindication/Reason for not providing: CKD Beta-Juhi Prescribed: Carvedilol Angiotensin II Receptor Juhi Prescribed: No Contraindication/Reason for not providing: CKD AnticoagulationTherapy for Atrial Fibrillation/Atrialflutter: No Contraindication/Reason for not providing: NO AFIB Aldosterone Antagonist Prescribed: No Contraindication/Reason for not providing: CKD Hydralazine Nitrate Prescribed: No Contraindication/Reason for not providing: NOT RX BY CARDIOLOGY AT PRESENT Implantable Cardioverter Defibrillator Therapy: No Contraindication/Reason for not providing: CARDIAC CATH IN 03/28- MILD NONOBSTRUCTIVE CAD Cardiac Resynchronization Therapy Prescribed: No Contraindication/Reason for not providing: CARDAIAC CATH IN 03/28- MILD NONOBSTRUCTIVE CAD - Follow up Will be discharged to: Home Follow Up Date (must be within 7 days from discharge): 10/03/16 Follow Up Time: 09:00
[2016-10-02] MEDS ORDERED: Pneumococcal 23-Valent Vaccine IM ONE (10:00)
[2016-10-02 21:26] VITALS: O2SAT 98
== END 2016-10-01 19:00 | disposition home or self-care (01) ==
LOC: C.ER 14:18 → C.9E 18:47 → C.6T 20:27
PROVIDERS: ADMIT Internal Medicine Nephrology; ATTEND Internal Medicine Nephrology
DX: I13.0 Hypertensive heart and chronic kidney disease with heart failure and stage 1 through stage 4 chronic kidney disease, or unspecified chronic kidney disease (principal); I50.30 Unspecified diastolic (congestive) heart failure; E03.9 Hypothyroidism, unspecified; E78.5 Hyperlipidemia, unspecified; I25.10 Atherosclerotic heart disease of native coronary artery without angina pectoris; J44.9 Chronic obstructive pulmonary disease, unspecified; N18.9 Chronic kidney disease, unspecified
CPT/HCPCS: 36415; 71010; 72052; 72125; 73030; 73200; 80053; 82948; 84484; 85025; 93005; 94640; 96374; 97162; 97530; 99285; G0378; G8981; G8982; J1650; J1885

== ENCOUNTER 2018-06-04 12:59 | Outpatient (CLI) | payer MEDICARE, MEDICAID | END 2018-06-04 13:00 | disposition home or self-care (01) | LOC: C.USIC 12:59 | DX: N18.3 Chronic kidney disease, stage 3 (moderate) (principal) ==